=== PATIENT | male | born 1980 | race Hispanic/Latino ===

== ENCOUNTER 2025-09-01 19:09 | Emergency (ER) | payer OTHER ==
[2025-09-01] MEDS ORDERED: Bacitracin 1 PK ONE (20:34)
[2025-09-01] MEDS ORDERED: Ibuprofen 800 MG TAB ONE (20:48)
== END 2025-09-01 20:50 ==
LOC: ERS 19:09
DX: S61.012A Laceration without foreign body of left thumb without damage to nail, initial encounter (principal); W26.8XXA Contact with other sharp object(s), not elsewhere classified, initial encounter
CPT/HCPCS: 12002; 99283; J0665